=== PATIENT | female | born 1980 | race Caucasian/White ===

== ENCOUNTER 2019-03-04 17:46 | Emergency (ER) | payer SELFPAY ==
[~2019-03-04] VITALS: Ht 157.5 cm; Wt 61.2 kg
[~2019-03-04 17:46] MED LIST: AMLO5TAB PO; PROP20TA29 PO
[2019-03-04 17:50] VITALS: BP 145/90
--- NOTE | 2019-03-04 17:50 | NUR ---
TO BED # 02 AMBULATORY
--- NOTE | 2019-03-04 18:05 | NUR ---
BIB BY DAUGHTER C/O HAVING INSOMNIA, NERVOUSNESS, ANXIETY, AND PANIC FOR ONE WEEK. PT ALSO C/O DULL LOWER BACK PAIN BILATERAL FOR ONE WEEK, HEADACHE AND BLURRED VISION FOR 2 DAYS. DENIES N/V/D; SKIN IS PINK/WARM/DRY; AAOX4 WITH EVEN AND STEADY GAIT; PT DENIES ANY FEVER, CP, SOB, OR COUGH AT THIS TIME; PATIENT STATES PAIN OF 6/10 AT THIS TIME; VSS; PATIENT POSITIONED FOR COMFORT; HOB ELEVATED; BEDRAILS UP X1; BED DOWN. ER MD MADE AWARE OF PT STATUS. DAUGHTER IS AT BEDSIDE.
--- NOTE | 2019-03-04 19:05 | NUR ---
Pt is vomiting. made aware.
[2019-03-04] MEDS ORDERED: ONDANSETRON 4 MG ODT PO ONE (19:10)
--- NOTE | 2019-03-04 19:23 | NUR ---
Patient discharged with v/s stable. Written and verbal after care instructions given and explained. Pt's nausea and vomiting have been improved. Patient alert, oriented and verbalized understanding of instructions. Ambulatory with steady gait. All questions addressed prior to discharge. ID band removed. Patient advised to follow up with PMD. Rx of Zofran and Atarax given. Patient educated on indication of medication including possible reaction and side effects. Opportunity to ask questions provided and answered.
[2019-03-04 19:24] VITALS: BP 152/105
== END 2019-03-04 19:24 | disposition home or self-care (01) ==
LOC: MED 17:46
DX: F41.9 Anxiety disorder, unspecified (principal); G47.00 Insomnia, unspecified; R42 Dizziness and giddiness; I10 Essential (primary) hypertension; Z79.899 Other long term (current) drug therapy
CPT/HCPCS: 81002; 81025; 99284; Q0162